=== PATIENT | female | born 1945 | race African-American/Black ===

== ENCOUNTER → 2018-01-03 | Outpatient (CLI) | payer OTHER ==
--- NOTE | 2018-01-11 13:06 | EEG ---
DATE OF SERVICE: 01/03/2018 EEG NUMBER: [id number] OBJECTIVE: This is a 72-year-old -Luxembourger female patient with history of memory loss. EEG was requested to evaluate cerebral activity. METHODS: Twenty electrodes were applied according to the international 10-20 electrode placement system. EKG monitoring, hyperventilation, intermittent photic stimulation, monopolar and bipolar montages are routinely utilized. The record was obtained on a digital system with video monitoring. FINDINGS: 1. Background: The patient was recorded in the awake and drowsy states. No actual sleep state was recorded. The overall background amplitude is 5-10 microvolts. A posterior dominant rhythm of 7-8 Hz is observed. 2. Abnormalities: No specific epileptiform discharge or electrographic seizure is seen. No focal or diffuse slowing. Diffuse muscle artifact noted. 3. Activation: Hyperventilation was performed with good efforts and normal response. Intermittent photic stimulation was performed with photic driving. IMPRESSION: This EEG is a borderline study for the awake and drowsy states. No actual sleep state was recorded. The posterior dominant rhythm of 7-8 Hz is mildly slow for age. No focal, lateralizing, specific epileptiform discharge or electrographic seizure is seen. Significant muscle artifact noted throughout the entire recording. May suggest repeat EEG in the future with relaxation of the patient. JOHNSON KO MD DR: LIVIER/cynthia JOB#: [id number] / [id number] CHIVO
== END | disposition home or self-care (01) ==
LOC: EDUNIT# 11:00 → RT 11:46
PROVIDERS: ATTEND Psychiatry & Neurology Neurology
DX: R41.3 Other amnesia (principal)
CPT/HCPCS: 95816